=== PATIENT | male | born 1980 | race Caucasian/White ===

== ENCOUNTER 2023-06-07 10:25 | Observation (INO) | payer BC ==
[2023-06-07 10:40] VITALS: BMI 32.5
[2023-06-07 11:38] LABS: HEMATOCRIT 44.4 % (35.4-49); HEMOGLOBIN 14.6 G/dL (11.7-16.9); MCH 24.9 pg (25.7-33.7); MCHC 32.8 g/dl (32.0-35.9); MEAN CELL VOLUME 76.1 fl (80-96); MEAN PLT VOLUME 9.1 fl (7.5-11.1); PLATELET COUNT 220.7 10^3/uL (134-434); RBC 5.84 10^6/uL (4.00-5.60); RDW 15.8 % (11.9-15.9); WHITE BLOOD COUNT 8.5 10^3/uL (4.0-10.8)
[2023-06-07 12:05] LABS: BILIRUBIN,TOTAL 0.4 mg/dl (0.2-1); CALCIUM 9.7 mg/dl (8.5-10.1); CREATININE 0.7 mg/dl (0.6-1.3); POTASSIUM 4.2 mmol/L (3.5-5.1); TOT PROT 7.3 g/dl (6.4-8.2); URIC ACID 7.2 mg/dl (2.6-7.2)
[2023-06-07] MEDS ORDERED: SODIUM CHLORIDE 1,000 ML IV ONE (12:05)
[2023-06-07] MEDS ORDERED: CEFTRIAXONE 1,000 MG in DEXTROSE 5%-WATER - 50 ML IVPB ONE (12:43)
[2023-06-07] MEDS ORDERED: cefTRIAXone SODIUM 1 GM VIAL ONE (12:43)
[2023-06-07] MEDS ORDERED: DIPHTH,PERTUSS(ACELL),TET 0.5 ML DISP.SYRIN IM ONE ×2 (12:43→12:44)
[2023-06-07] MEDS ORDERED: VANCOMYCIN/WATER FOR INJ (PEG) 1 GM/200 ML BAG IVPB ONE (13:30)
[2023-06-07] MEDS: ACETAMINOPHEN 1000 MG/100 ML BAG IVPB PRN ×2 (13:57→19:44)
[2023-06-07] MEDS: oxyCODONE HCL 5 MG TABLET PO PRN ×2 (15:15→21:44)
[2023-06-07 15:40] LABS: CHOLESTEROL 185 mg/dl (50-200); HDL CHOLESTEROL 44 mg/dl (40-60); LDL CHOLESTEROL (ONLY DFH) 117 mg/dl (5-100)
[2023-06-07] MEDS: CEFAZOLIN SODIUM 2 GM in DEXTROSE 5%-WATER 100 ML IVPB SCH (17:59)
[2023-06-07] MEDS: COLCHICINE 0.6 MG CAPSULE PO SCH (21:45)
[2023-06-07] MEDS: PANTOPRAZOLE 40 MG TABLET PO SCH (21:45)
[2023-06-08] MEDS: CEFAZOLIN SODIUM 2 GM in DEXTROSE 5%-WATER 100 ML IVPB SCH ×3 (01:34→17:45)
[2023-06-08] MEDS: ACETAMINOPHEN 1000 MG/100 ML BAG IVPB PRN ×3 (01:34→22:43)
[2023-06-08] MEDS: oxyCODONE HCL 5 MG TABLET PO PRN ×2 (05:04→13:17)
[2023-06-08] MEDS ORDERED: KETOROLAC TROMETHAMINE 15 MG/ML VIAL IVPUSH PRN (08:10)
[2023-06-08 09:20] LABS: HEMATOCRIT 42.8 % (35.4-49); HEMOGLOBIN 13.8 G/dL (11.7-16.9); MCH 24.7 pg (25.7-33.7); MCHC 32.2 g/dl (32.0-35.9); MEAN CELL VOLUME 76.6 fl (80-96); MEAN PLT VOLUME 9.3 fl (7.5-11.1); PLATELET COUNT 213.4 10^3/uL (134-434); RBC 5.59 10^6/uL (4.00-5.60); RDW 15.6 % (11.9-15.9); WHITE BLOOD COUNT 9.4 10^3/uL (4.0-10.8)
[2023-06-08 09:28] LABS: ALBUMIN 4.5 g/dl (3.4-5.0); BILIRUBIN,TOTAL 0.3 mg/dl (0.2-1); CALCIUM 9.1 mg/dl (8.5-10.1); CREATININE 0.7 mg/dl (0.6-1.3); POTASSIUM 3.7 mmol/L (3.5-5.1); TOT PROT 6.7 g/dl (6.4-8.2)
[2023-06-08] MEDS: PANTOPRAZOLE 40 MG TABLET PO SCH (09:47)
[2023-06-08] MEDS: COLCHICINE 0.6 MG CAPSULE PO SCH ×2 (09:47→21:31)
[2023-06-08] MEDS: KETOROLAC TROMETHAMINE 15 MG/ML VIAL IVPUSH SCH ×2 (15:38→22:39)
[2023-06-08] MEDS ORDERED: MAGNESIUM CITRATE 300 ML BOTTLE PO ONE (18:40)
[2023-06-08] MEDS: POLYETHYLENE GLYCOL (HEALTHYLAX) 3350 17 GM PACKET PO SCH ×2 (18:53→21:32)
[2023-06-08] MEDS: DOCUSATE SODIUM 100 MG CAPSULE (FP) PO SCH ×2 (18:53→21:32)
[2023-06-08 22:43] VITALS: RESP 18
[2023-06-09] MEDS: CEFAZOLIN SODIUM 2 GM in DEXTROSE 5%-WATER 100 ML IVPB SCH (01:05)
[2023-06-09] MEDS: DOCUSATE SODIUM 100 MG CAPSULE (FP) PO SCH ×2 (01:10→06:27)
[2023-06-09] MEDS: POLYETHYLENE GLYCOL (HEALTHYLAX) 3350 17 GM PACKET PO SCH ×2 (01:10→06:27)
[2023-06-09] MEDS: KETOROLAC TROMETHAMINE 15 MG/ML VIAL IVPUSH SCH ×2 (05:00→09:43)
[2023-06-09 09:08] LABS: BILIRUBIN,TOTAL 0.2 mg/dl (0.2-1); CREATININE 0.7 mg/dl (0.6-1.3); POTASSIUM 4.4 mmol/L (3.5-5.1); TOT PROT 5.9 g/dl (6.4-8.2)
[2023-06-09] MEDS ORDERED: CEFAZOLIN SODIUM 2 GM in DEXTROSE 5%-WATER 100 ML IVPB SCH (09:17)
[2023-06-09 09:26] LABS: BASO % 0.4 % (0-2.0); EOS % 2.6 % (0-4.5); HEMATOCRIT 38.5 % (35.4-49); HEMOGLOBIN 12.2 GM/dL (11.7-16.9); MCHC 31.8 g/dl (32.0-35.9); MEAN CELL VOLUME 75.4 fl (80-96); MONO % 8.3 % (3.8-10.2); NEUT % 61.7 % (42.8-82.8); PLATELET COUNT 203 10^3/uL (134-434); RBC 5.11 M/mm3 (4.00-5.60); RDW 13.6 % (11.9-15.9); WHITE BLOOD COUNT 6.7 K/mm3 (4.0-10.0)
[2023-06-09] MEDS: PANTOPRAZOLE 40 MG TABLET PO SCH (09:36)
[2023-06-09] MEDS: COLCHICINE 0.6 MG CAPSULE PO SCH (09:36)
[2023-06-09 09:38] VITALS: BP 120/76; PULSE 81; TEMP 98.2
[2023-06-09] MEDS ORDERED: SODIUM CHLORIDE 0.9% 500 ML INFUS.BAG IV ONE (10:20)
== END 2023-06-09 11:52 | disposition home or self-care (01) ==
LOC: FER 10:25 → FM/S 12:59
PROC: 3E033NZ Introduction of Analgesics, Hypnotics, Sedatives into Peripheral Vein, Percutaneous Approach (ICD-10-PCS; principal; 2023-06-07)
PROC: 3E03329 Introduction of Other Anti-infective into Peripheral Vein, Percutaneous Approach (ICD-10-PCS; 2023-06-07)
PROC: 3E0234Z Introduction of Serum, Toxoid and Vaccine into Muscle, Percutaneous Approach (ICD-10-PCS; 2023-06-07)
PROC: 3E0333Z Introduction of Anti-inflammatory into Peripheral Vein, Percutaneous Approach (ICD-10-PCS; 2023-06-07)
PROC: 3E0337Z Introduction of Electrolytic and Water Balance Substance into Peripheral Vein, Percutaneous Approach (ICD-10-PCS; 2023-06-07)
DX: L03.113 Cellulitis of right upper limb (principal); E78.5 Hyperlipidemia, unspecified; M10.9 Gout, unspecified; R73.03 Prediabetes; E66.9 Obesity, unspecified; Z23 Encounter for immunization
CPT/HCPCS: 36415; 73110-TC-RT-FY; 73130-TC-RT-FY; 80053; 80061; 82962; 83036; 84439; 84443; 84550; 85025; 85027; 85651; 86140; 86200; 86431; 86618; 87040; 87081; 90715; 99285-25; G0378; J0131

== ENCOUNTER 2024-02-22 15:53 | Emergency (ER) | payer BC ==
[2024-02-22] MEDS: KETOROLAC TROMETHAMINE 15 MG/ML VIAL IVPUSH ONE (16:30)
[2024-02-22] MEDS: SODIUM CHLORIDE 0.9% 1000 ML INFUS.BAG IV ONE (16:30)
[2024-02-22] MEDS ORDERED: LIDOCAINE 5% TOPICAL PATCH TP ONE (16:30)
[2024-02-22] MEDS ORDERED: KETOROLAC TROMETHAMINE 15 MG/ML VIAL ONE (16:31)
[2024-02-22 16:44] VITALS: BP 110/82; PULSE 88; RESP 16; TEMP 98.2; BMI 30.8
[2024-02-22 16:46] LABS: EPITHELIAL CELLS 0-5 /hpf
[2024-02-22 16:55] LABS: HEMATOCRIT 48.8 % (35.4-49); HEMOGLOBIN 15.3 G/dL (11.7-16.9); MCH 24.4 pg (25.7-33.7); MCHC 31.3 g/dl (32.0-35.9); MEAN CELL VOLUME 77.8 fl (80-96); MEAN PLT VOLUME 9.5 fl (7.5-11.1); PLATELET COUNT 243.9 10^3/uL (134-434); RBC 6.27 10^6/uL (4.00-5.60); RDW 16.4 % (11.9-15.9); WHITE BLOOD COUNT 9.7 10^3/uL (4.0-10.8)
[2024-02-22 17:03] LABS: PLATELET ESTIMATE ADEQUATE
[2024-02-22 17:04] LABS: ALBUMIN 5.2 g/dl (3.4-5.0); BILIRUBIN,TOTAL 0.4 mg/dl (0.2-1); CALCIUM 10.1 mg/dl (8.5-10.1); CREATININE 0.7 mg/dl (0.6-1.3); POTASSIUM 4.2 mmol/L (3.5-5.1); TOT PROT 7.2 g/dl (6.4-8.2)
[2024-02-22] MEDS ORDERED: LIDOCAINE 5% TOPICAL PATCH ONE (17:19)
[2024-02-22] MEDS ORDERED: LIDOCAINE PATCH REMOVAL MC SCH (22:00)
== END 2024-02-22 18:14 | disposition home or self-care (01) ==
LOC: FER 15:53
PROC: 3E0333Z Introduction of Anti-inflammatory into Peripheral Vein, Percutaneous Approach (ICD-10-PCS; principal; 2024-02-22)
DX: M54.50 Low back pain, unspecified (principal); R10.9 Unspecified abdominal pain
CPT/HCPCS: 36415; 74176-TC; 80053; 81003; 81015; 85027; 87086; 99284-25